=== PATIENT | male | born 1960 | race Native Hawaiian/Other Pacific Islander ===

== ENCOUNTER 2016-06-23 13:36 | Outpatient (CLI) | payer OTHER | END 2016-06-23 20:02 | disposition home or self-care (01) | LOC: MRI 13:36 | DX: S84.11XA Injury of peroneal nerve at lower leg level, right leg, initial encounter (principal) ==

== ENCOUNTER 2017-08-01 09:20 | Outpatient (CLI) | payer OTHER | END 2017-08-01 19:20 | disposition home or self-care (01) | LOC: US 09:20 | DX: R94.5 Abnormal results of liver function studies (principal) ==

== ENCOUNTER 2017-09-21 10:21 | Outpatient (CLI) | payer OTHER | END 2017-09-21 19:53 | disposition home or self-care (01) | LOC: US 10:21 | DX: R94.5 Abnormal results of liver function studies (principal) ==

== ENCOUNTER 2018-05-01 02:47 | Emergency (ER) | payer OTHER ==
[~2018-05-01] VITALS: Ht 185.4 cm; Wt 91.6 kg
[2018-05-01 05:01] VITALS: BP 144/86; TEMP 98.4
[2018-05-02] MEDS ORDERED: IBU800 MG PO (09:19)
[2018-05-02] MEDS ORDERED: OZEMPIC2 MG/1.5 M SC (09:21)
[2018-05-02] MEDS ORDERED: CETIRIZINE10 MG PO (09:22)
[2018-05-02] MEDS ORDERED: ROPINIROLE1 MG PO (09:22)
[2018-05-02] MEDS ORDERED: LINZESS145 MCG PO (09:23)
[2018-05-02] MEDS ORDERED: TRICOR145 M1 PO (09:23)
[2018-05-02] MEDS ORDERED: D3-5050000 UNIT PO (09:24)
[2018-05-02] MEDS ORDERED: METFORMIN ER1000 MG PO (09:25)
[2018-05-02] MEDS ORDERED: OMEPRAZOLE DR20 MG PO (09:25)
[2018-05-02] MEDS ORDERED: AMBIEN5 MG PO (09:26)
[2018-05-02] MEDS ORDERED: TAMS0.4C PO (09:26)
[2018-05-02] MEDS ORDERED: HYDROCODONE BIT1 TA1 PO (09:27)
== END 2018-05-01 05:03 | disposition home or self-care (01) ==
LOC: ED 02:47
DX: N13.2 Hydronephrosis with renal and ureteral calculous obstruction (principal)
CPT/HCPCS: 81000; 87088; 96372; 99283; J1885

== ENCOUNTER 2018-05-02 08:37 | Emergency (ER) | payer OTHER ==
[~2018-05-02] VITALS: Ht 185.4 cm; Wt 91.6 kg
[2018-05-02] MEDS ORDERED: IBU800 MG PO (09:19)
[2018-05-02] MEDS ORDERED: OZEMPIC2 MG/1.5 M SC (09:21)
[2018-05-02] MEDS ORDERED: ROPINIROLE1 MG PO (09:22)
[2018-05-02] MEDS ORDERED: CETIRIZINE10 MG PO (09:22)
[2018-05-02] MEDS ORDERED: TRICOR145 M1 PO (09:23)
[2018-05-02] MEDS ORDERED: LINZESS145 MCG PO (09:23)
[2018-05-02] MEDS ORDERED: D3-5050000 UNIT PO (09:24)
[2018-05-02] MEDS ORDERED: METFORMIN ER1000 MG PO (09:25)
[2018-05-02] MEDS ORDERED: OMEPRAZOLE DR20 MG PO (09:25)
[2018-05-02] MEDS ORDERED: TAMS0.4C PO (09:26)
[2018-05-02] MEDS ORDERED: AMBIEN5 MG PO (09:26)
[2018-05-02] MEDS ORDERED: HYDROCODONE BIT1 TA1 PO (09:27)
[2018-05-02 11:40] VITALS: BP 144/84; TEMP 98
== END 2018-05-02 11:45 | disposition home or self-care (01) ==
LOC: ED 08:37
DX: N20.0 Calculus of kidney (principal); R31.9 Hematuria, unspecified
CPT/HCPCS: 36415; 81000; 99284; J1885

== ENCOUNTER 2019-07-05 07:50 | Emergency (ER) | payer OTHER ==
[~2019-07-05] VITALS: Ht 185.4 cm; Wt 93.9 kg
[~2019-07-05 07:50] MED LIST: AMBIEN5 MG PO; CETIRIZINE10 MG PO; D3-5050000 UNIT PO; HYDROCODONE BIT1 TA1 PO; IBU800 MG PO; LINZESS145 MCG PO; METFORMIN ER1000 MG PO; OMEPRAZOLE DR20 MG PO; OZEMPIC2 MG/1.5 M SC; ROPINIROLE1 MG PO; TAMS0.4C PO; TRICOR145 M1 PO
[2019-07-05 08:47] LABS: POTASSIUM 4.3 mmol/L (3.6-5.2)
[2019-07-05 09:57] LABS: PLATELET COUNT 237 K/uL (142-355)
[2019-07-05 10:24] VITALS: BP 137/71; TEMP 98.2
== END 2019-07-05 10:26 | disposition home or self-care (01) ==
LOC: ED 07:50
DX: N20.1 Calculus of ureter (principal); Z87.442 Personal history of urinary calculi
CPT/HCPCS: 36415; 80053; 81000; 85027; 96360; 96375; 96376; 99284; J1885; J2405

== ENCOUNTER 2020-11-22 14:34 | Outpatient (CLI) | payer OTHER | END 2020-11-22 19:39 | disposition home or self-care (01) | LOC: MRI 14:34 | PROVIDERS: ATTEND Neurological Surgery | DX: M54.16 Radiculopathy, lumbar region (principal) ==

== ENCOUNTER 2020-12-15 08:58 | Outpatient (CLI) | payer OTHER | END 2020-12-15 22:35 | disposition home or self-care (01) | LOC: MRI 08:58 | PROVIDERS: ATTEND Neurological Surgery | DX: M54.12 Radiculopathy, cervical region (principal) ==

== ENCOUNTER 2021-03-24 09:16 | Outpatient (CLI) | payer OTHER | END 2021-03-24 19:12 | disposition home or self-care (01) | LOC: MRI 09:16 | PROVIDERS: ATTEND Physician Assistant Medical | DX: M54.16 Radiculopathy, lumbar region (principal) | CPT/HCPCS: 36415; 82565; 84520; A9576 ==